=== PATIENT | male | born 1960 | race Caucasian/White ===

== ENCOUNTER 2021-09-20 15:46 | Inpatient (IN) | payer BC ==
[~2021-09-20] VITALS: Ht 175.3 cm; Wt 77.1 kg
[2021-09-20 21:07] LABS: ABSOLUTE NEUTROPHILS 2.8 thou/uL (1.4-8.2); BASOPHILS 0.7 % (0.0-2.0); EOSINOPHILS 4.8 % (0.0-3.0); HEMOGLOBIN 14.7 gm/dL (14.0-18.0); LYMPHOCYTES 24.6 % (24.0-44.0); MCH 33.2 pg (26.0-34.0); MCHC 34.9 g/dL (28.0-37.0); MONOCYTES 10.1 % (1.0-8.0); PLATELET COUNT 141 thou/uL (150-400); POLYS 59.8 % (36.0-66.0); RBC 4.42 mil/uL (4.50-6.00); RDW 13.1 % (10.5-14.5); WBC 4.8 thou/uL (4.0-11.0)
[2021-09-20 21:22] LABS: APTT 30.8 Seconds (24.5-32.8); INR 0.93; PROTIME 10.2 Seconds (10.5-12.1)
[2021-09-20 21:31] VITALS: BP 135/78
[2021-09-20 21:31] LABS: ALBUMIN 3.4 g/dL (3.4-5.0); CALCIUM 8.8 mg/dL (8.5-10.1); CREATININE 0.9 mg/dL (0.7-1.3); POTASSIUM 3.6 mmol/L (3.5-5.1); TOTAL BILIRUBIN 0.4 mg/dL (0.2-1.0)
[2021-09-20] MEDS ORDERED: METFORMIN HCL500 M3 PO (22:27)
[2021-09-20] MEDS ORDERED: SIMVASTATIN40 MG PO (22:27)
[2021-09-20] MEDS ORDERED: ZESTRIL40 MG PO (22:27)
[2021-09-20] MEDS ORDERED: PROTONIX40 M4 PO (22:28)
[2021-09-20] MEDS ORDERED: NEURONTIN300 MG PO (22:28)
[2021-09-20 22:32] LABS: GGTP 46 U/L (15-85); MAGNESIUM 1.9 mg/dL (1.8-2.4); PHOSPHORUS 3.9 mg/dL (2.6-4.7)
[2021-09-20 22:33] LABS: SERUM ASSESSMENT Clear
[2021-09-20 22:57] LABS: URINE BILIRUBIN NEGATIVE (Negative); URINE BLOOD NEGATIVE (Negative); URINE CLARITY CLEAR; URINE COLOR YELLOW; URINE GLUCOSE-RANDOM* 3+ (Negative); URINE KETONES NEGATIVE (Negative); URINE LEUKOCYTES-REFLEX NEGATIVE (Negative); URINE NITRITE-REFLEX NEGATIVE (Negative); URINE PROTEIN (DIPSTICK) NEGATIVE (Negative)
[2021-09-20 23:01] LABS: CHOLESTEROL 206 mg/dL (<200); HDL CHOLESTEROL 38 mg/dL (>40); LDL CHOLESTEROL 132 mg/dL (<100); TC:HDL 5.4 Ratio (Not establshd); TRIGLYCERIDE 182 mg/dL (<150); VLDL 36 mg/dL (<40)
[2021-09-20 23:24] LABS: FOLIC ACID 37.5 ng/mL (8.6-58.9)
[2021-09-21] VITALS (34 sets, daily range): BP systolic 93–140; BP diastolic 44–86
--- NOTE | 2021-09-21 07:33 | NUR ---
Pt was a transfer from [facility]. Pt transferred for an open heart surgery. Admission assessment and education completed. Verbalizes mild pain. Pt is prepped for surgery this morning. No sign of distress noted through the night. Consent signed for surgery. No acute event noted through the night. Continue to monitor. No further needs at this time.
[2021-09-21 12:37] LABS: MCH 33.6 pg (26.0-34.0); MCHC 35.7 g/dL (28.0-37.0); RBC 3.29 mil/uL (4.50-6.00); RDW 12.7 % (10.5-14.5); WBC 11.3 thou/uL (4.0-11.0)
[2021-09-21 12:41] LABS: HEMOGLOBIN 11.1 gm/dL (14.0-18.0)
[2021-09-21 12:48] LABS: APTT 27.7 Seconds (24.5-32.8); INR 1.1; PROTIME 11.9 Seconds (10.5-12.1)
[2021-09-21 13:00] LABS: POC BE 1 mmol/L (-2.0 to +3.0); POC CA IONIZED 4.3 mg/dL (4.5-5.3); POC GLUCOSE 237 mg/dL (70-99); POC HCO3 25.5 mmol/L (22.0-26.0); POC HEMOGLOBIN 9.9 g/dL (14.0-18.0); POC POTASSIUM 3.5 mmol/L (3.5-5.1); POC SODIUM 138 mmol/L (136-145); POC pCO2 42.3 mmHg (35.0-45.0); POC pH 7.389 (7.360-7.450)
[2021-09-21 13:00] LABS: POC BE 1 mmol/L (-2.0 to +3.0); POC CA IONIZED 4.3 mg/dL (4.5-5.3); POC GLUCOSE 234 mg/dL (70-99); POC HCO3 25.5 mmol/L (22.0-26.0); POC HEMOGLOBIN 10.9 g/dL (14.0-18.0); POC POTASSIUM 3.4 mmol/L (3.5-5.1); POC SODIUM 141 mmol/L (136-145); POC pH 7.402 (7.360-7.450)
[2021-09-21 13:00] LABS: POC BE 1 mmol/L (-2.0 to +3.0); POC CA IONIZED 4.3 mg/dL (4.5-5.3); POC GLUCOSE 239 mg/dL (70-99); POC HCO3 25.9 mmol/L (22.0-26.0); POC HEMOGLOBIN 9.9 g/dL (14.0-18.0); POC SODIUM 139 mmol/L (136-145); POC pCO2 43.4 mmHg (35.0-45.0); POC pH 7.384 (7.360-7.450)
[2021-09-21 13:00] LABS: POC BE 1 mmol/L (-2.0 to +3.0); POC CA IONIZED 4.7 mg/dL (4.5-5.3); POC GLUCOSE 240 mg/dL (70-99); POC HCO3 26.3 mmol/L (22.0-26.0); POC HEMOGLOBIN 13.3 g/dL (14.0-18.0); POC POTASSIUM 3.8 mmol/L (3.5-5.1); POC SODIUM 139 mmol/L (136-145); POC pCO2 43.3 mmHg (35.0-45.0); POC pH 7.391 (7.360-7.450)
[2021-09-21 13:00] LABS: POC BE -2 mmol/L (-2.0 to +3.0); POC CA IONIZED 4.7 mg/dL (4.5-5.3); POC GLUCOSE 174 mg/dL (70-99); POC HCO3 22.9 mmol/L (22.0-26.0); POC HEMOGLOBIN 11.2 g/dL (14.0-18.0); POC POTASSIUM 3.5 mmol/L (3.5-5.1); POC SODIUM 143 mmol/L (136-145); POC pCO2 38.2 mmHg (35.0-45.0); POC pH 7.387 (7.360-7.450)
[2021-09-21 13:00] LABS: POC BE 0 mmol/L (-2.0 to +3.0); POC CA IONIZED 4.9 mg/dL (4.5-5.3); POC GLUCOSE 216 mg/dL (70-99); POC HCO3 25.2 mmol/L (22.0-26.0); POC HEMOGLOBIN 10.5 g/dL (14.0-18.0); POC POTASSIUM 3.8 mmol/L (3.5-5.1); POC SODIUM 141 mmol/L (136-145); POC pCO2 41.1 mmHg (35.0-45.0); POC pH 7.396 (7.360-7.450)
[2021-09-21 13:00] LABS: POC BE 2 mmol/L (-2.0 to +3.0); POC CA IONIZED 4.2 mg/dL (4.5-5.3); POC GLUCOSE 219 mg/dL (70-99); POC HCO3 26.6 mmol/L (22.0-26.0); POC HEMOGLOBIN 11.2 g/dL (14.0-18.0); POC POTASSIUM 3.4 mmol/L (3.5-5.1); POC SODIUM 139 mmol/L (136-145); POC pCO2 44.5 mmHg (35.0-45.0); POC pH 7.385 (7.360-7.450)
[2021-09-21 13:00] LABS: POC BE 4 mmol/L (-2.0 to +3.0); POC CA IONIZED 4.8 mg/dL (4.5-5.3); POC GLUCOSE 282 mg/dL (70-99); POC HCO3 26.9 mmol/L (22.0-26.0); POC HEMOGLOBIN 13.9 g/dL (14.0-18.0); POC POTASSIUM 4.4 mmol/L (3.5-5.1); POC SODIUM 137 mmol/L (136-145); POC pCO2 35.2 mmHg (35.0-45.0); POC pH 7.492 (7.360-7.450)
--- NOTE | 2021-09-21 13:41 | NUR ---
recieved from surgery acc by Anes and OR personnel. pt sedated and being bagged. Placed on the Vent and Monitor. Pt on propofol cardene. all lines and equipment intact. Dr Story and campos at the bedside. Meds and PCT intact with minimal drainage.will cont to monitor. will progress toward POC.
[2021-09-21 13:45] LABS: HEMATOCRIT 38.7 % (42.0-52.0); MCH 32.2 pg (26.0-34.0); MCHC 33.6 g/dL (28.0-37.0); MCV 95.7 fL (80.0-100.0); RBC 4.04 mil/uL (4.50-6.00); RDW 12.5 % (10.5-14.5); WBC 14.1 thou/uL (4.0-11.0)
[2021-09-21 13:49] LABS: BE(vivo) -3.9 mmol/L (-2 to +3); PCO2 37.6 mmHg (35.0-45.0); PO2 96.6 mmHg (80.0-100.0); pH 7.364 (7.360-7.450); sO2 97.2 % (92.0-98.0)
[2021-09-21 13:53] LABS: CALCIUM 8.3 mg/dL (8.5-10.1); CREATININE 0.8 mg/dL (0.7-1.3); POTASSIUM 3.8 mmol/L (3.5-5.1)
[2021-09-21 13:54] LABS: MAGNESIUM 2.3 mg/dL (1.8-2.4)
--- NOTE | 2021-09-21 14:00 | NUR ---
Pt getting restless shaking his head and his feet. Still on a low dose of Propofol. He is trying to raise up out of the bed. Encouraged to lay still because he just had surgery. I did increase the Porfolol for him to rest for another hour. Discussion on whther or not this patient should be on Precedex they think he would be out of the 72 hour window. will cont to monitor.
[2021-09-21 14:15] LABS: APTT 27.6 Seconds (24.5-32.8); INR 1.03; PROTIME 11.2 Seconds (10.5-12.1)
--- NOTE | 2021-09-21 14:45 | NUR ---
RT here and the propofol is off trying to see if he can follow instructions for weaning. he is biting on the tube. encouraged to just relax he does for a short time. on cpap but RR rate is 36-40. Dr Story here orders for SBP >150. ABG'done called to Dr Story orders to extubate the patient, he is thrashing about biting on the tube, Pt extubated at 1515 he does calm down after this. See [facility].
--- NOTE | 2021-09-21 14:56 | EKG ---
[address] [address] ELECTROCARDIOGRAM REPORT Name: JAZMYNE ALEXANDRA Room #: 249-P ADM IN M.R.#: [id number] Admission: 09/20/21 Attend Phys: Jose J Ca MD Discharge: Date of : 58 Report #: [id number] [facility] Test Date: 2021-09-21 Test Time: 13:44:14 Pat Name: JAZMYNE ALEXANDRA Department: Room: 249 P Gender: M Electronic Warfare Operator: MYA : 1960 Requested By: Juan Luis Massey Order Number: [id number] MD: Troy Skaggs Measurements Intervals [place] Rate: 103 P: 60 UT: 128 QRS: 60 QRSD: 138 T: -39 QT: 383 QTc: 502 Interpretive Statements Sinus tachycardia Right bundle branch block No previous ECG available for comparison Electronically Signed On 09-21-2021 14:56:33 RADIO TESTER by Troy Skaggs [email or web address] <ELECTRONICALLY SIGNED> By: Troy Skaggs MD, [facility] 09/21/21 1456 1344 1344 Troy Skaggs MD, FACC /EPI
[2021-09-21 15:07] LABS: BE(vivo) -6.6 mmol/L (-2 to +3); HCO3 19.3 mmol/L (22.0-26.0); PO2 72.1 mmHg (80.0-100.0); sO2 93.1 % (92.0-98.0)
[2021-09-21 15:08] LABS: pH 7.301 (7.360-7.450)
[2021-09-22] VITALS: BP 107/57
[2021-09-22 01:02] VITALS: BP 115/63
[2021-09-22 02:06] LABS: GLYCOHEMOGLOBIN (HGB A1C) 9.5 % (4.8-5.6)
[2021-09-22 03:21] LABS: HEMATOCRIT 34.1 % (42.0-52.0); MCH 33.4 pg (26.0-34.0); MCHC 35.1 g/dL (28.0-37.0); MCV 95.2 fL (80.0-100.0); RBC 3.58 mil/uL (4.50-6.00); RDW 12.6 % (10.5-14.5); WBC 9.1 thou/uL (4.0-11.0)
[2021-09-22 03:42] LABS: CREATININE 0.7 mg/dL (0.7-1.3); POTASSIUM 3.6 mmol/L (3.5-5.1)
--- NOTE | 2021-09-22 07:48 | EKG ---
[address] [place] [address] ELECTROCARDIOGRAM REPORT Name: JAZMYNE ALEXANDRA Room #: 249-P ADM IN M.R.#: [id number] Admission: 09/20/21 Attend Phys: Jose J Ca MD Discharge: Date of : 58 Report #: [id number] [facility] Test Date: 2021-09-22 Test Time: 07:28:12 Pat Name: JAZMYNE ALEXANDRA Department: Room: 249 P Gender: M Spotter: MYA : 1960 Requested By: Juan Luis Massey Order Number: [id number] MD: Troy Skaggs Measurements Intervals [place] Rate: 84 P: 35 RI: 117 QRS: -16 QRSD: 108 T: -36 QT: 374 QTc: 443 Interpretive Statements Sinus rhythm Borderline short RI interval Borderline left axis deviation Anterior infarct, possibly acute Lateral leads are also involved Compared to ECG 09/21/2021 13:44:14 Myocardial infarct finding now present Sinus tachycardia no longer present Right bundle-branch block no longer present Electronically Signed On 09-22-2021 7:48:41 TECHNICIAN TEST SYSTEMS by Troy Skaggs [email or web address] <ELECTRONICALLY SIGNED> By: Troy Skaggs MD, FACC 09/22/21 0748 7 7 Troy Skaggs MD, [facility] /EPI
[2021-09-22 08:00] VITALS: BP 112/62
--- NOTE | 2021-09-22 09:33 | NUR ---
RD consult received for diet education and also high risk nutrition screening. S/P CABG on 09/21. PMH: DM uncontrolled (A1C 9.5), HLD (chol 208, trigs 182, HDL 38, LDL 132), +tobacco, +etoh use, HTN. Nutr screen indicated decreased appetite with 2-13 lb wt loss. Diet has been newly advanced and has oral supplement Glucerna shake ordered. Low nutrition risk. Will address nutrition education needs and if pt motivated for highly needed/recommended lifestyle changes once transferred out of ICU and at more appropriate time.
--- NOTE | 2021-09-22 11:12 | NUR ---
Case opened to follow for dc planning support. Pt is s/p CABGx5 and was ext last night. Message left for his Deepali to contact cm to review his prior level of function and assess for any dc planning needs. Pt to be seen by PT/OT/Cardiac Rehab today. Case discussed with the care team in rounds. Pt was transfered emergently from [facility] for open heart. He was working fulltime and indep prior to admission. Lives with is . He has active health insurance in place for f/u care . He has had a prior GA a few years ago. He is a pack and a half a day smoker and has daily ethol use. CM will follow along and see how he progresses postop.
[2021-09-22 15:14] LABS: BE(vivo) -3.8 mmol/L (-2 to +3); HCO3 19.9 mmol/L (22.0-26.0); PCO2 31.9 mmHg (35.0-45.0); PO2 50.5 mmHg (80.0-100.0); pH 7.412 (7.360-7.450); sO2 86.7 % (92.0-98.0)
--- NOTE | 2021-09-22 23:07 | NUR ---
ASSUMED CARE OF PT AT 1900. SPKE TO PT AND UPDATED ON PT CONDITION. WILL CONINUE WITH POC.
[2021-09-23 04:00] VITALS: BP 120/63
[2021-09-23 05:14] LABS: HEMATOCRIT 34.4 % (42.0-52.0); HEMOGLOBIN 11.7 gm/dL (14.0-18.0); MCH 33.1 pg (26.0-34.0); MCHC 34.1 g/dL (28.0-37.0); MCV 97.1 fL (80.0-100.0); RBC 3.55 mil/uL (4.50-6.00); RDW 12.9 % (10.5-14.5); WBC 9.6 thou/uL (4.0-11.0)
[2021-09-23 05:35] LABS: CALCIUM 8.2 mg/dL (8.5-10.1); CREATININE 0.8 mg/dL (0.7-1.3)
--- NOTE | 2021-09-23 05:59 | NUR ---
SPOKE TO PT . UPDATED ON PT STATUS AND ANSWERED QUESTIONS
[2021-09-23 08:00] VITALS: BP 123/73
[2021-09-23 12:01] VITALS: BP 116/62
[2021-09-23 16:00] VITALS: BP 118/63
[2021-09-23 20:00] VITALS: BP 107/70
--- NOTE | 2021-09-23 20:06 | NUR ---
PT GRADUALLY PROGRESSED TOWARD GOALS BY THE END OF THE SHIFT. THIS AM, PT WAS AGITATED AND RESTLESS AND DID NOT WANT TO COMPLY WITH TREATMENT. AFTER NOON, PT WAS PLEASANT, COOPERATIVE, AND APOLOGETIC FOR ACTIONS EARLIER IN THE DAY. PT'S WAS AT BEDSIDE FROM AROUND 1200 TO 1500 AND COACHED PT THROUGH BREATHING AND CARES. XIOMY WAS DC'D AROUND 0930 BY THIS RN. JENNY TOOK OUT PLEURAL CHEST TUUBE AND DC'D PACER WIRES AT 1220. THIS RN TOOK OUT INTRODUCER AT 1250. PT STOOD UP AT BEDSIDE FOR A COUPLE OF MINUTES BEFORE THRASHING BACK INTO BED AND COMPLAINING OF BACK PAIN. PRN PO HYDROCODONE WAS GIVEN BUT PATIENT WAS ADAMENT THROUGHOUT THE REST OF THE DAY THAT HE DID NOT WANT TO GET OUT OF BED UNTIL TOMORROW. PT APPETITE IS POOR AND PT ONLY CONSUMED ABOUT 60% OF LUNCH. PT DENIED BREAKFAST AND DINNER. PT HAD GREAT URINE OUTPUT THROUGHOUT THE SHIFT AND MAINTAINED ADEQUATE HYDRATION WITHIN FLUID RESTRICTION LIMITS. WILL CONTINUE TO MONITOR AND FOLLOW POC.
[2021-09-24] VITALS (20 sets, daily range): BP systolic 83–125; BP diastolic 43–66
[2021-09-24 07:54] LABS: ALBUMIN 2.7 g/dL (3.4-5.0); CALCIUM 8.2 mg/dL (8.5-10.1); CREATININE 0.7 mg/dL (0.7-1.3); MAGNESIUM 1.7 mg/dL (1.8-2.4); POTASSIUM 3.2 mmol/L (3.5-5.1); TOTAL BILIRUBIN 1.4 mg/dL (0.2-1.0); TOTAL PROTEIN 6.3 g/dL (6.4-8.2)
[2021-09-24 07:58] LABS: HEMOGLOBIN 12.3 gm/dL (14.0-18.0); MCH 32.6 pg (26.0-34.0); MCHC 34.3 g/dL (28.0-37.0); MCV 95.2 fL (80.0-100.0); RBC 3.78 mil/uL (4.50-6.00); RDW 12.6 % (10.5-14.5)
--- NOTE | 2021-09-24 09:26 | NUR ---
Call back message rec'd from pt's . Message left regarding cm role and dc planning needs. Thearpy is working with the pt and he as been up to the chair. He is requiring high levels of O2 and has needed redirection d/t aggitation. Dc time frame and needs are uncertain pending his progress. Will follow along and see how he progresses. He lives in [facility] and may benefit from or acute rehab.
[2021-09-24 23:33] LABS: MAGNESIUM 1.8 mg/dL (1.8-2.4); POTASSIUM 3.2 mmol/L (3.5-5.1)
[2021-09-25] VITALS (19 sets, daily range): BP systolic 88–125; BP diastolic 17–75
[2021-09-25 05:29] LABS: HEMATOCRIT 36.3 % (42.0-52.0); HEMOGLOBIN 12.3 gm/dL (14.0-18.0); MCH 32.6 pg (26.0-34.0); MCV 96.1 fL (80.0-100.0); RBC 3.78 mil/uL (4.50-6.00); RDW 12.7 % (10.5-14.5); WBC 6.7 thou/uL (4.0-11.0)
[2021-09-25 06:01] LABS: CALCIUM 8.7 mg/dL (8.5-10.1); CREATININE 0.9 mg/dL (0.7-1.3)
--- NOTE | 2021-09-25 07:52 | EKG ---
[place] [address] [address] [facility] [place] [address] ELECTROCARDIOGRAM REPORT Name: JAZMYNE ALEXANDRA Room #: 249-P ADM IN M.R.#: [id number] Admission: 09/20/21 Attend Phys: Jose J Ca MD Discharge: Date of : 58 Report #: [id number] [facility] Test Date: 2021-09-25 Test Time: 07:05:15 Pat Name: JAZMYNE ALEXANDRA Department: Room: 249 P Gender: M Huc Ob: MARY ANNE : 1960 Requested By: Juan Luis Massey Order Number: [id number] MD: Wesley Dolan Measurements Intervals [place] Rate: 69 P: 66 ID: 124 QRS: -9 QRSD: 107 T: -70 QT: 399 QTc: 428 Interpretive Statements Sinus rhythm Early R wave progression Inferior lateral T wave inversion Baseline wander in lead(s) II,III,aVF Compared to ECG 09/22/2021 07:28:[address] segment elevation no longer present Electronically Signed On 09-25-2021 7:51:53 TITLE EXAMINER by Wesley Dolan [email or web address] <ELECTRONICALLY SIGNED> By: Wesley Dolan MD, [facility] 09/25/21 0751 0705 0705 Wesley Dolan MD, [facility] /EPI
--- NOTE | 2021-09-25 10:30 | NUR ---
This RN spoke with the patient's , Harvinder Quispe, over the phone from [phone] and she was updated and educated on the patient's condition and plan of care.
--- NOTE | 2021-09-25 10:31 | NUR ---
This RN spoke with the patient's daughter, Maria Yip, over the phone from [phone] and she was updated and educated on the patient's condition and plan of care. Consent was obtained from her regarding the patient's upcoming nephrostomy exchange.
--- NOTE | 2021-09-25 14:23 | NUR ---
Pt remains in ICU on 10liters highflow O2 and precedex. Dc timeframe is uncertain pending his progress. CM to follow along and reassess for rehab or hh referrals early next week.
--- NOTE | 2021-09-25 16:45 | NUR ---
patient transferred to room 215 at 1642. accompanied the patient during transport.
--- NOTE | 2021-09-25 16:58 | NUR ---
PT ORIENTED TO ROOM AND UNIT, BED LOW AND LOCKED, SIDE RAILS UPX3, CALL LIGHT IN REACH, TELE AND CONTINUOUS PULSE OX APPLIED TO PT. WILL CONTINUE TO ASSESS.
[2021-09-26 03:58] VITALS: BP 148/73
[2021-09-26 08:57] VITALS: BP 137/70
--- NOTE | 2021-09-26 09:02 | NUR ---
ASSESSMENTS CHARTED, MEDS CHARTED GIVEN. PATIENT STARTED NIGHT IN THE RECLINER, THEN TO BED FOR SLEEP. C/O PAIN SEVERAL TIMES DURING SHIFT. ON CONTINUOUS PULSE OX. WHEN PATIENT WENT TO SLEEP OXYGEN WENT DOWN IN THE LOWER 80'S. PLACED ON 2 LITERS NASAL CANULA. GAVE REPORT TO DAY SHIFT NURSE AT PATIENT BEDSIDE. PASSED ON THAT JENNY WANTS TO BE HERE WHEN HE TAKES A SHOWER AND GET A NEW DRESSING.
--- NOTE | 2021-09-26 09:38 | O ---
[facility] [place] [address] OPERATIVE REPORT Name: JAZMYNE ALEXANDRA Room #: 215-P ADM IN M.R.#: [id number] Admission: 09/20/21 Attend Phys: Jose J Ca MD Discharge: Date of : 58 Report #: [id number] THIS REPORT FOR: cc: FAM - Family physician unknown FAM - Family physician unknown Jamal Story MD ~ DATE OF SERVICE: 09/21/2021 PREOPERATIVE DIAGNOSIS: Coronary artery disease. POSTOPERATIVE DIAGNOSIS: Coronary artery disease. OPERATION: Coronary artery bypass x 5 including left internal mammary artery to left anterior descending artery, saphenous vein to diagonal, first marginal, and second marginal and saphenous vein to posterior descending artery and endoscopic harvest, left greater saphenous vein. SURGEON: Jamal Story MD RADIOLOGICAL TECHNICIAN: SADIE Otto. ANESTHESIA: General. INDICATIONS: The patient is a 61-year-old seen for Dr. Flores at [facility]. The patient presents with a non-STEMI. The patient has critical lesions in the second circumflex marginal and also a right coronary artery, but tight lesions in other vessels as well, comprising "3-vessel" coronary disease. Left ventricular function is satisfactory, the patient has diabetes mellitus. FINDINGS AND TECHNIQUE: After general anesthesia was established, saphenous vein was harvested using an endoscopic approach and prepared for use as a conduit. Exposure was obtained through median sternotomy. Left internal mammary artery was harvested. Pericardial wall was made. Cannulation sutures were placed. Heparin was given. Aorta was cannulated. Right atrium was cannulated. Cardioplegia needle was positioned in the aortic root. Retrograde cardioplegic catheter was placed in the coronary sinus. Cardiopulmonary bypass was established. Aorta was cross clamped. Antegrade and retrograde cardioplegia were given. Ice was poured into the pericardial wall. The heart was stopped. During electromechanical arrest, the distal anastomoses were performed. An end-to-side anastomosis was made between vein and the posterior descending artery. Cold cardioplegia was given. Separate segment of vein was sewn in end-to-side fashion to the distal circumflex marginal. Cold cardioplegia was given. The same segment of vein was sewn to the more proximal circumflex marginal. Cold cardioplegia was given. The same segment of vein was sewn in [facility] [address] [place] [address] OPERATIVE REPORT Name: JAZMYNE ALEXANDRA Room #: 215-P [facility]#: [id number] Admission: 09/20/21 Attend Phys: Jose J Ca MD Discharge: Date of : 58 Report #: [id number] end-to-side fashion to the diagonal artery. Cold cardioplegia was given. Left internal mammary artery was sewn in end-to-side fashion to left anterior descending artery. Patency of this anastomosis was checked with the temperature technique and the Doppler. Cold cardioplegia was given. Two proximal anastomoses were performed and these were complete, warm retrograde cardioplegia was given followed by warm continuous blood to the coronary sinus. When this infusion was complete, the crossclamp was removed. De-airing maneuvers were performed. The anastomoses were inspected and found to be satisfactory. As the patient warmed, nice cardiac activity resumed, chest tubes and pacing wires were placed. A marker was placed around the proximal anastomoses. When the patient was warm, he was weaned from cardiopulmonary bypass. Venous cannula was removed. Protamine was given, the aortic cannula was removed. Flows were measured in the bypass grafts. When hemostasis was satisfactory, chest was irrigated with antibiotic solution and closed in the usual fashion. The patient was taken to the Intensive Care Unit in good condition having tolerated the procedure well. All counts were reported as correct. <ELECTRONICALLY SIGNED> By: Jamal Story MD 09/26/21 0938 1835 [id number] Jamal Story MD /nt
--- NOTE | 2021-09-26 10:50 | NUR ---
PT D/C OT HAS MET ALL GOALS
[2021-09-26 12:00] VITALS: BP 123/76
--- NOTE | 2021-09-26 15:30 | NUR ---
PT ALERT AND ORIENTED. VSS. PRN PAIN MED GIVEN WITH PARTIAL RELIEF. STERNUM PRECAUTION ENFORCED. HAD A SHOWER TODAY BY OT. STERNUM LEN DRESSING CHANGED. DRESSING C/D/I. UP IN THE CHAIR THIS SHIFT. NO CONCERNS AT THIS TIME. PT PROGRESSING WELL TOWARDS DISCHARGE GOAL.
[2021-09-26 16:00] VITALS: BP 102/56
[2021-09-26 21:18] VITALS: BP 118/68
[2021-09-27 04:10] LABS: ALBUMIN 2.8 g/dL (3.4-5.0); CALCIUM 9.1 mg/dL (8.5-10.1); CREATININE 0.9 mg/dL (0.7-1.3); PHOSPHORUS 5.3 mg/dL (2.5-4.9); POTASSIUM 3.3 mmol/L (3.5-5.1)
[2021-09-27 05:34] VITALS: BP 131/73
--- NOTE | 2021-09-27 08:22 | NUR ---
ASSESSMENTS CHARTED, MEDS CHARTED GIVEN. PATIENT RESTING IN ROOM DURING SHIFT. PATIENT REQUIRED LESS PAIN MEDS DURING SHIFT THAN PREVIOUS. PATIENT PROGRESSING TO GOAL.
[2021-09-27 08:40] VITALS: BP 116/74
[2021-09-27 12:37] VITALS: BP 100/65
[2021-09-27 16:18] VITALS: BP 95/57
[2021-09-27 19:56] VITALS: BP 126/68
--- NOTE | 2021-09-28 04:56 | NUR ---
PT AMBULATING INDEPENDENTLY IN ROOM AND IS TOLERATING WELL. DENIES NEED FOR PAIN MEDICATION. RESTING COMFORTABLY. NO NEEDS VOICED. CALL LIGHT WITHIN REACH. FREQUENT OBSERVATION.
[2021-09-28 05:29] VITALS: BP 120/72
[2021-09-28 08:08] VITALS: BP 117/69
[2021-09-28] MEDS ORDERED: FERREX 150 PLU1 EAC1 PO (08:43)
[2021-09-28] MEDS ORDERED: METOPROLOL SUCC25 M1 PO (08:43)
[2021-09-28] MEDS ORDERED: ADULT LOW DOSE81 MG PO (08:44)
[2021-09-28 11:13] VITALS: BP 118/75
[2021-09-28 12:26] VITALS: BP 118/75
--- NOTE | 2021-09-28 12:30 | NUR ---
CHART REVIEWED AND DISCUSSED WITH CARE TEAM. PT MEDICALLY STABLE TO DISCHARGE THIS DAY. PT AGREEABLE TO FANTASMA SERVICE. FANTASMA LIASON HERE AND MET WITH PT. NO FURTHER CM INTERVENTIONS NEEDED AT THIS TIME.
--- NOTE | 2021-09-28 13:14 | NUR ---
I have reviewed the documentation by BLAZE ST from 09/28/21 to 09/28/21 and I concur with it. RONY DESAI, PT, DPT
[2021-09-28 15:10] VITALS: BP 95/45
[2021-09-28] MEDS ORDERED: KEFLEX250 MG PO (17:01)
--- NOTE | 2021-09-28 17:16 | NUR ---
SPOKE WITH DR. RALPH AND HE SAID THAT PATIENT CAN BE DISCHARGED ONCE GIVEN THE ONE DOSE OF ROCEPHIN.
== END 2021-09-28 18:39 | disposition home health service (06) | DRG 235 ==
LOC: 2N 15:46 → ICU 19:44 → 2N 09-25 16:58
PROVIDERS: Hospitalist; Nurse Practitioner Family; Physician Assistant; Surgery Vascular Surgery; ADMIT Hospitalist; ATTEND Hospitalist
PROC: 06BQ4ZZ Excision of Left Saphenous Vein, Percutaneous Endoscopic Approach (ICD-10-PCS; principal; 2021-09-21)
PROC: 02100Z9 Bypass Coronary Artery, One Artery from Left Internal Mammary, Open Approach (ICD-10-PCS; principal; 2021-09-21)
PROC: 5A1221Z Performance of Cardiac Output, Continuous (ICD-10-PCS; principal; 2021-09-21)
PROC: 021309W Bypass Coronary Artery, Four or More Arteries from Aorta with Autologous Venous Tissue, Open Approach (ICD-10-PCS; principal; 2021-09-21)
PROC: 05HY33Z Insertion of Infusion Device into Upper Vein, Percutaneous Approach (ICD-10-PCS; 2021-09-22)
PROC: 5A0935A Assistance with Respiratory Ventilation, Less than 24 Consecutive Hours, High Flow/Velocity Cannula (ICD-10-PCS; 2021-09-23)
PROC: 5A0935A Assistance with Respiratory Ventilation, Less than 24 Consecutive Hours, High Flow/Velocity Cannula (ICD-10-PCS; 2021-09-24)
PROC: 5A1221Z Performance of Cardiac Output, Continuous (ICD-10-PCS; 2021-09-24)
DX: I25.10 Atherosclerotic heart disease of native coronary artery without angina pectoris (principal); I21.4 Non-ST elevation (NSTEMI) myocardial infarction; J96.90 Respiratory failure, unspecified, unspecified whether with hypoxia or hypercapnia; I10 Essential (primary) hypertension; E78.5 Hyperlipidemia, unspecified; E11.9 Type 2 diabetes mellitus without complications; Z20.822 Contact with and (suspected) exposure to COVID-19; E11.42 Type 2 diabetes mellitus with diabetic polyneuropathy; F17.210 Nicotine dependence, cigarettes, uncomplicated; Z83.3 Family history of diabetes mellitus; Z82.49 Family history of ischemic heart disease and other diseases of the circulatory system; I25.2 Old myocardial infarction; Z95.5 Presence of coronary angioplasty implant and graft; Z71.6 Tobacco abuse counseling
CPT/HCPCS: 10078; 10081; 47000; 47001; 47002; 47297; 47405; 48889; 50010; 50249; 50668; 51301; 52131; 52259; 52287; 53327; 53358; 54118; 56455; 56524; 56525; 56526; 56527; 56528; 56531; 56534; 56668; 56719; 56760; 56898; 57093; 57167; 58585; 58856; 58901; 58918; 62110; 62950; 65003; 65020; 65090; 65120; 65135; 83006